=== PATIENT | male | born 1945 | race Caucasian/White ===

== ENCOUNTER 2018-07-18 13:34 | Emergency (ER) | payer MEDICARE, BC, SELFPAY ==
[2018-07-18] VITALS (15 sets, daily range): BP systolic 147–166; BP diastolic 85–90; PULSE 61–84; RESP 16–32; TEMP 37; O2SAT 95–99
[2018-07-18 13:59] LABS: Abs Immature Grans 0.01 k/cumm (0.0-0.09); Absolute Basophil Count 0.05 k/cumm (0.0-0.2); Absolute Eosinophil Count 0.67 k/cumm (0.0-0.7); Absolute Lymphocyte Count 1.55 k/cumm (1.2-3.4); Absolute Monocyte Count 0.61 k/cumm (0.11-0.7); Absolute Neutrophil Count 4.94 k/cumm (1.2-6.7); Basophils % 0.6; Eosinophils % 8.6; HCT 43.1 % (40.0-50.0); HGB 14.6 g/dL (13.5-17.5); Immature Grans % 0.1; Lymphocytes % 19.8; Mean Corp. HGB Concentration 33.9 g/dL (32.0-36.0); Mean Corpuscular Hemoglobin 30.5 pg (27.0-33.0); Mean Corpuscular Volume 90.2 fL (80-95); Mean Platelet Volume 9.2 fL (8.0-11.0); Monocytes % 7.8; Neutrophils % 63.1; Platelet Count 259 x1000/uL (130-400); RBC 4.78 m/cumm (4.50-6.00); RBC Distribution Width 12.7 % (11.8-14.1); White Blood Cell Count 7.83 k/cumm (4.4-10.8)
--- NOTE | 2018-07-18 14:04 | W.ED.GENAD ---
Discharge Plan Disposition Patient Disposition: HOME Condition: Stable Discharge Details Chief Complaint: Chest Pain Clinical Impression: Palpitations Primary Care Provider: Carolann Schulz ED Provider: Yifan Quiles Discharge Instructions Instructions: Palpitations (ED) Additional Instructions: Follow up with your primary care provider in 1-2 weeks and discuss having a stress test at that time for further evaluation of your symptoms return to the emergency department for worsening pain, difficulty breathing or vomit Medical Decision Making 73 yo male who denies chronic medical problems and denies any smoking history who comes in with chief complaint of palpitations intermittently for about 5 days. He states he feels his heart skipping beats for a few minutes with some aches and goes away on it's own. Denies radiation of pain, fevers, chills, sob, n/v, diaphoresis and has none now. Had some symptoms over 5 hours ago. Denies any abdominal pain or headaches. He is speaking in full sentences and laughing intermittently in no distress. He has no abdominal tenderness, clear lungs sounds and no murmurs with normal vascular exam. No tearing back pain and normal vascular exam so doubt dissection. No hypoxia or tachycardia so doubt pe and no evidence of dvt. His pain doesn't sound typical of acs, heart score is 2 based on age, ekg without ischemic findings, will send troponin, keep on tele and monitor electrolytes pt remains asymptomatic with normal tele here and is reading a book in no dsitress. Labs unremarkable. Do not feel additional troponin indicated given length of time with symptoms. Will d/c home with zio patch, advised f/u with pcp and return precautions given Differential Diagnosis afib, pvc's, acs Lab Data Lab results reviewed: Yes I reviewed the patient's lab results. ECG Data Attestation: I personally reviewed and interpreted this ECG (s) as follows: Prior ECG tracings: not available for review Interpretation: sinus rhythm, rate of 64, pr 184, no acute st t wave ischemic findings HPI General Mode of arrival: ambulatory. Date/Time Provider Initiated Documentation: 07/18/18 13:35. Limitations to Documentation: no limitations. Information obtained by: patient. History of Present Illness 73 year old M presents to the emergency department with the chief complaint of palpitations, described as mild, and is localized to the chest. Patient reports no radiation. Patient started experiencing this day(s) (5) and it has been intermittent. No relieving factors improve symptom(s), No exacerbating factors reported . Patient notes no other symptoms.. Patient did receive the following treatments prior to arrival, Aspirin (324mg asa earlier today per pt) General Stated Complaint: Chest Pain GISELLE: 2 Review of Systems Review of Systems All systems reviewed & are unremarkable except as noted in HPI and below Constitutional Denies chills and Denies fever(s) Cardiovascular Denies dyspnea Respiratory Denies cough and Denies dyspnea Gastrointestinal Denies abdominal pain, Denies nausea and Denies vomiting Musculoskeletal Denies joint swelling Integumentary/Breasts Denies rash [facility] Social History Do you feel safe at home: Yes Do you feel safe in your relationship?: Yes Exam Const General: no acute distress Orientation: alert HENMT Head: normal to inspection Ears: external ears normal General nose exam: external nose normal Mouth: moist mucous membranes Eyes General: appearance normal, both eyes and all related structures Neck Neck: normal visual inspection Resp Effort & Inspection: normal respiratory effort and able to speak in complete sentences Cardio Rate: regular rate Skin General skin exam: no rashes or lesions noted Neuro General: alert and oriented x3 Extrem General: normal to inspection Psych Mental Status: mental status grossly normal Course Vital Signs Temperature 37 C 07/18/18 13:40 Pulse 84 07/18/18 13:40 Respiratory Rate 16 07/18/18 13:40 Blood Pressure 162/89 H 07/18/18 13:40 Pulse Oximetry 97 07/18/18 13:40 Temperature 37 C 07/18/18 13:40 Pulse 84 07/18/18 13:40 Respiratory Rate 16 07/18/18 13:40 Respiratory Effort Non-Labored 07/18/18 13:43 Blood Pressure 162/89 H 07/18/18 13:40 Blood Pressure Position Sitting 07/18/18 13:40 Pulse Oximetry 97 07/18/18 13:40 Oxygen Delivery Method Room Air 07/18/18 13:40 Oxygen Flow Rate 0 07/18/18 13:40 Lab/Test Results Lab/Test Results: Laboratory Tests Range/Units 07/18/18 13:43 WBC (4.4-10.8) k/cumm 7.83 RBC (4.50-6.00) m/cumm 4.78 Hgb (13.5-17.5) g/dL 14.6 Hct (40.0-50.0) % 43.1 MCV (80-95) fL 90.2 MCH (27.0-33.0) pg 30.5 MCHC (32.0-36.0) g/dL 33.9 RDW (11.8-14.1) % 12.7 Plt Count (130-400) x1000/uL 259 MPV (8.0-11.0) fL 9.2 Immature Gran % 0.1 Neutrophils % 63.1 Lymphocytes % 19.8 Monocytes % 7.8 Eosinophils % 8.6 Basophils % 0.6 Absolute Neutrophils (1.2-6.7) k/cumm 4.94 Absolute Lymphocytes (1.2-3.4) k/cumm 1.55 Absolute Monocytes (0.11-0.7) k/cumm 0.61 Absolute Eosinophils (0.0-0.7) k/cumm 0.67 Absolute Basophils (0.0-0.2) k/cumm 0.05
--- NOTE | 2018-07-18 14:10 | ED.GENADUL_ITS ---
Discharge Plan Disposition Patient Disposition: HOME Condition: Stable Discharge Details Chief Complaint: Chest Pain Clinical Impression: Palpitations Primary Care Provider: Carolann Schulz ED Provider: Yifan Quiles Discharge Instructions Instructions: Palpitations (ED) Additional Instructions: Follow up with your primary care provider in 1-2 weeks and discuss having a stress test at that time for further evaluation of your symptoms return to the emergency department for worsening pain, difficulty breathing or vomit Medical Decision Making 73 yo male who denies chronic medical problems and denies any smoking history who comes in with chief complaint of palpitations intermittently for about 5 days. He states he feels his heart skipping beats for a few minutes with some aches and goes away on it's own. Denies radiation of pain, fevers, chills, sob, n/v, diaphoresis and has none now. Had some symptoms over 5 hours ago. Denies any abdominal pain or headaches. He is speaking in full sentences and la ughing intermittently in no distress. He has no abdominal tenderness, clear lungs sounds and no murmurs with normal vascular exam. No tearing back pain and normal vascular exam so doubt dissection. No hypoxia or tachycardia so doubt pe and no evidence of dvt. His pain doesn't sound typical of acs, heart score is 2 based on age, ekg without ischemic findings, will send troponin, keep on tele and monitor electrolytes pt remains asymptomatic with normal tele here and is reading a book in no dsitress. Labs unremarkable. Do not feel additional troponin indicated given length of time with symptoms. Will d/c home with zio patch, advised f/u with pcp and return precautions given Differential Diagnosis afib, pvc's, acs Lab Data Lab results reviewed: Yes I reviewed the patient's lab results. ECG Data Attestation: I personally reviewed and interpreted this ECG (s) as follows: Prior ECG tracings: not available for review Interpretation: sinus rhythm, rate of 64, pr 184, no acute st t wave ischemic findings HPI General Mode of arrival: ambulatory . Date/Time Provider Initiated Documentation: 07/18/18 13:35 . Limitations to Documentation: no limitations . Information obtained by: patient . History of Present Illness 73 year old M presents to the emergency department with the chief complaint of palpitations, described as mild, and is localized to the chest. Patient reports no radiation. Patient started experiencing this day(s) (5) and it has been intermittent. No relieving factors improve symptom(s), No exacerbating factors reported . Patient notes no other symptoms.. Patient did receive the following treatments prior to arrival, Aspirin (324mg asa earlier today per pt) General Stated Complaint: Chest Pain GISELLE: 2 Review of Systems Review of Systems All systems reviewed & are unremarkable except as noted in HPI and below Constitutional Denies chills and Denies fever(s) Cardiovascular Denies dyspnea Respiratory Denies cough and Denies dyspnea Gastrointestinal Denies abdominal pain, Denies nausea and Denies vomiting Musculoskeletal Denies joint swelling Integumentary/Breasts Denies rash [facility] Social History Do you feel safe at home: Yes Do you feel safe in your relationship?: Yes Exam Const General: no acute distress Orientation: alert HENMT Head: normal to inspection Ears: external ears normal General nose exam: external nose normal Mouth: moist mucous membranes Eyes General: appearance normal, both eyes and all related structures Neck Neck: normal visual inspection Resp Effort & Inspection: normal respiratory effort and able to speak in complete sentences Cardio Rate: regular rate Skin General skin exam: no rashes or lesions noted Neuro General: alert and oriented x3 Extrem General: normal to inspection Psych Mental Status: mental status grossly normal Course Vital Signs Temperature 37 C 07/18/18 13:40 Pulse 84 07/18/18 13:40 Respiratory Rate 16 07/18/18 13:40 Blood Pressure 162/89 H 07/18/18 13:40 Pulse Oximetry 97 07/18/18 13:40 Temperature 37 C 07/18/18 13:40 Pulse 84 07/18/18 13:40 Respiratory Rate 16 07/18/18 13:40 Respiratory Effort Non-Labored 07/18/18 13:43 Blood Pressure 162/89 H 07/18/18 13:40 Blood Pressure Position Sitting 07/18/18 13:40 Pulse Oximetry 97 07/18/18 13:40 Oxygen Delivery Method Room Air 07/18/18 13:40 Oxygen Flow Rate 0 07/18/18 13:40 Lab/Test Results Lab/Test Results: Laboratory Tests Range/Units 07/18/18 13:43 WBC (4.4-10.8) k/cumm 7.83 RBC (4.50-6.00) m/cumm 4.78 Hgb (13.5-17.5) g/dL 14.6 Hct (40.0-50.0) % 43.1 MCV (80-95) fL 90.2 MCH (27.0-33.0) pg 30.5 MCHC (32.0-36.0) g/dL 33.9 RDW (11.8-14.1) % 12.7 Plt Count (130-400) x1000/uL 259 MPV (8.0-11.0) fL 9.2 Immature Gran % 0.1 Neutrophils % 63.1 Lymphocytes % 19.8 Monocytes % 7.8 Eosinophils % 8.6 Basophils % 0.6 Absolute Neutrophils (1.2-6.7) k/cumm 4.94 Absolute Lymphocytes (1.2-3.4) k/cumm 1.55 Absolute Monocytes (0.11-0.7) k/cumm 0.61 Absolute Eosinophils (0.0-0.7) k/cumm 0.67 Absolute Basophils (0.0-0.2) k/cumm 0.05
[2018-07-18 14:17] LABS: PTT Activated 22.7 sec (21.0-31.4); Prothrombin Time 9.9 sec (9.3-11.0)
[2018-07-18 14:19] LABS: ALT 35 U/L (12-78); AST 27 U/L (15-37); Alkaline Phosphatase 68 U/L (46-116); Anion Gap 8.5 mmol/L (3-11); BUN 17 mg/dL (7-18); Bilirubin, Total 0.3 mg/dL (0.2-1.0); CO2 30.5 mmol/L (21.0-32.0); CREATININE 1.09 mg/dL (0.70-1.30); Calcium 9.1 mg/dL (8.5-10.1); Chloride 103 mmol/L (98-107); Glucose 131 mg/dL (70-100); Lipase 182 U/L (73-393); Potassium 3.6 mmol/L (3.5-5.1); Sodium 142 mmol/L (136-145); Total Protein 7.7 g/dL (6.4-8.2)
[2018-07-18 14:23] LABS: Troponin I < 0.02 ng/mL (0.00-0.06)
--- NOTE | 2018-08-08 10:23 | ZIOP_ITS ---
DATE OF DICTATION: August 08, [address]: 14 days, July 18 - August 01, 2018 Baseline rhythm sinus. Rare single PAC. Sixteen bursts of SVT, longest 8-beat duration, fastest 197 bpm. Rare single PVC. Rare couplet. No ventricular tachycardia. No bradycardia/block. Two triggered events during sinus rhythm +/- single PAC, single PVC, 65, 69 bpm. One symptomatic episode. Skipped, irregular beats noted during sinus rhythm 69 bpm. Average heart rate sinus 66 bpm, range 43-131 bpm.
== END 2018-07-18 15:19 | disposition home or self-care (01) ==
PROVIDERS: Emergency Provider Emergency Medicine; PCP Nurse Practitioner Family
DX: R00.2 Palpitations (principal)
CPT/HCPCS: 0296T; 36415; 80053; 80076; 83690; 99284; 83735; 84484; 85025; 85610; 85730

== ENCOUNTER 2018-08-08 08:38 | Outpatient (CLI) | payer MEDICARE, BC, SELFPAY | END 2018-08-08 08:58 | PROVIDERS: PCP Nurse Practitioner Family; Referring Provider Emergency Medicine; Visit Provider Internal Medicine Interventional Cardiology | DX: R00.2 Palpitations (principal); I47.1 Supraventricular tachycardia; I49.1 Atrial premature depolarization; I49.3 Ventricular premature depolarization | CPT/HCPCS: 0298T ==

== ENCOUNTER → 2019-01-27 10:19 | Outpatient (BNVA) | payer MEDICARE, BC, SELFPAY | PROVIDERS: PCP Nurse Practitioner Family; Referring Provider Nurse Practitioner Family; Visit Provider Physical Therapy Assistant | DX: Z12.11 Encounter for screening for malignant neoplasm of colon (principal); I10 Essential (primary) hypertension ==

== ENCOUNTER 2019-02-09 11:04 | Day surgery (SDC) | payer MEDICARE, BC, SELFPAY ==
[2019-02-09 11:26] VITALS: BP 137/95; PULSE 59; RESP 16; TEMP 36.4; O2SAT 99
[2019-02-09] MEDS: Lactated Ringers 1,000 ML 80 ML IV (11:39)
--- NOTE | 2019-02-09 14:09 | W.COLOREPORT ---
Date of service: 02/09/19 Time of Service: 14:09 Colonoscopy Report Date of procedure: 02/09/19 Pre-op diagnosis general: colon cancer screening Post-op diagnosis procedure note: other (divertic) Procedure: CE Anesthesia proc note operative: GETA Estimated blood loss (mL): 0 Pathology: none sent Complications: None Disposition: same day Retraction Time: 10 mins Procedure Description: After informed consent was obtained the patient was taken to the procedure room and placed in a left decubitous position. Monitors were applied and a time out was done. The patients name, date of , procedure, allergies to medications and metal in their body was reviewed. The patient was then sedated. Once sedated and comfortable a rectal exam was done. External exam is small external rectal tags.. Internal exam revealed a normal sphincter tone and no palpable masses. The prostate slt enlargment. The scope was then introduced and retrofelexed. No internal hemorrhoids were identified. The scope was then advanced to the cecum without difficulty. The TI and appendiceal orifice were identified. The prep was good. The scope was then slowly retracted over 10 minutes back into the rectum. There were no polyps or AVMs noted. He does have moderate diverticular disease confined to the sigmoid colon. There is no signs of active bleeding or infection. The scope was removed and the patient was woken up and taken back to Same day surgery in stable condition. The patient tolerated the procedure well and there were no immediate complications. Follow up: The patient does not require repeat colonoscopy, Unless they develop changes in bowel habits or other new gastrointestinal complaints. Patient has a small skin cancer on his right ear that should be removed. He can follow-up in the office to have this taken care of.
--- NOTE | 2019-02-09 14:13 | W.PM.DSUDISC ---
Discharge Plan Disposition Patient Disposition: HOME Condition: Good Discharge Details Reason For Visit: colon scope Attending Provider: Karina Lal Primary Care Provider: Cole Cagle Home Meds and New Rx's Prescriptions: Continued hydrochlorothiazide 12.5 mg tablet 12.5 mg PO DAILY RF: 0 Discontinued polyethylene glycol 3350 17 gram/dose powder 238 g PO ONCE Qty: 238 RF: 0 bisacodyl [Dulcolax (bisacodyl)] 5 mg tablet,delayed release (DR/EC) 5 mg PO ONCE Qty: 4 RF: 0 Discharge Instructions Instructions: Diverticulosis (DC), High Fiber Diet (GEN) Additional Instructions: Findings: moderate divertiuclar Dx high fiber diet- 30grams daily. consider fiber suppliment. Make sure you are moving your bowels on a regular basis and not straining. Follow up: F/u in clinic w/ Dr. Lal to have lesion removed on ear Please call if you develop: fevers >101.5 Nausea or Vomiting Abdominal pain that is not transient DAY SURGERY UNIT POST COLONOSCOPY INSTRUCTIONS 1. Because there will be medication in your system for the next 24 hours, you may feel a little sleepy. Your coordination will be affected. Therefore: a. Do not drive or operate dangerous equipment for 24 hours. b. Do not drink alcohol beverages for 24 hours (not even beer). c. Plan to go home and rest for the day. 2. Generally there are no restrictions on your activity after a day or so has gone by, but you may feel a bit fatigued for a few days. 3 After you arrive home you may have a light meal and return to a normal diet as you can tolerate it without feeling sick to your stomach. 4. After surgery, you may feel pain or discomfort. This should be only transient, but if it persists please contact your doctor. 5. If there are any questions regarding the findings of your procedure, please feel free to contact your doctor. 6. If you are unable to contact your doctor with a problem, contact the hospital at [phone]. 7. Continue all your regular medications unless directed otherwise. I understand the above instructions and have no questions. Signature of Patient or Responsible Adult Escort Date/Time Name of Responsible Adult Escort Signature of Nurse Date/Time Activity:: no heavy lifting or strenuous acitivity x 24 hrs Diet:: small light meals for 24 hours Discharge Orders Discharge Orders: Discharge Order (Routine); Ordered 02/09/19 Ordered By: Karina Lal DS: Diagnosis Discharge Diagnosis (1) Diverticulosis: Status: Acute (2) Cancer of skin of right ear: Status: Acute
[2019-02-09 14:32] VITALS: BP 122/78; PULSE 55; RESP 16; TEMP 36.5; O2SAT 97
== END 2019-02-09 15:00 | disposition home or self-care (01) ==
PROVIDERS: PCP Nurse Practitioner Family; Visit Provider Surgery
PROC: 0DJD8ZZ Inspection of Lower Intestinal Tract, Via Natural or Artificial Opening Endoscopic (ICD-10-PCS; CPT 45378; principal; 2019-02-09 11:45)
DX: Z12.11 Encounter for screening for malignant neoplasm of colon (principal); K57.30 Diverticulosis of large intestine without perforation or abscess without bleeding; I10 Essential (primary) hypertension
CPT/HCPCS: G0121; J2250; J3010

== ENCOUNTER → 2019-02-22 09:52 | Outpatient (BNVA) | payer MEDICARE, BC, SELFPAY | PROVIDERS: PCP Nurse Practitioner Family; Referring Provider Nurse Practitioner Family; Visit Provider Surgery | DX: L82.1 Other seborrheic keratosis (principal) | CPT/HCPCS: 11441; 99212 ==

== ENCOUNTER 2019-02-22 10:57 | Outpatient (REF) | payer MEDICARE, BC, SELFPAY ==
--- NOTE | 2019-02-22 10:02 | SKI_PTH ---
PATIENT: Ry Khan LOC: [facility] U#:[id number] AGE/SX: 73/M ROOM: RE02/22/[address]: Karina Lal : 1945 BED: DIS: 02/22/2019 SPEC #: [id number] RECD: 02/22/19 12:48 STATUS: ANCA REQ #: [id number] KE: 02/22/19 10:[address]: Karina Lal DEPT: Surgical Specimen RECD BY: Sofia Ayala ENTERED: 02/22/19 12:48 SP TYPE: BLAIR LEDBETTER DR: Cole Cagle Tissues: 1 - SKIN BIOPSY(SHAVE/PUNCH) Procedures: SKIN LEVEL 4 Comments: [id number]
== END 2019-02-22 11:17 ==
LOC: LBN 10:57
PROVIDERS: PCP Nurse Practitioner Family; Visit Provider Surgery
DX: L82.1 Other seborrheic keratosis (principal)
CPT/HCPCS: 88305

== ENCOUNTER → 2019-03-08 15:46 | Outpatient (BNVA) | payer MEDICARE, BC, SELFPAY | PROVIDERS: PCP Nurse Practitioner Family; Referring Provider Nurse Practitioner Family; Visit Provider Surgery | DX: L82.0 Inflamed seborrheic keratosis (principal); Z48.89 Encounter for other specified surgical aftercare ==

== ENCOUNTER 2019-05-22 08:59 | Outpatient (REF) | payer MEDICARE, BC, SELFPAY ==
[2019-05-22 14:19] LABS: PROTEIN 6.6 mg/dL
[2019-05-22 14:21] LABS: COMMENT (LAB VIEW ONLY) 93.54 mg/dL; Prot/Crea Ur Ratio 0.07
[2019-05-22 14:22] LABS: COMMENT (LAB VIEW ONLY) 93.03 mg/dL; Microalb ug/mg Crea 5.7 ug/mg Cr
== END 2019-05-22 09:19 ==
LOC: NCHCN 08:59
PROVIDERS: PCP Nurse Practitioner Family; Visit Provider Nurse Practitioner Family
DX: I10 Essential (primary) hypertension (principal)
CPT/HCPCS: 82043; 82565; 82570; 84156

== ENCOUNTER 2019-07-03 13:25 | Outpatient (REF) | payer MEDICARE, BC, SELFPAY ==
[2019-07-03 14:05] LABS: Anion Gap 10.8 mmol/L (3-11); BUN 18 mg/dL (7-18); CO2 27.2 mmol/L (21.0-32.0); CREATININE 1.09 mg/dL (0.70-1.30); Calcium 8.8 mg/dL (8.5-10.1); Chloride 105 mmol/L (98-107); Glucose 89 mg/dL (74-106); Potassium 3.9 mmol/L (3.5-5.1); Sodium 143 mmol/L (136-145)
== END 2019-07-03 13:45 ==
LOC: NCHCN 13:25
PROVIDERS: PCP Nurse Practitioner Family; Visit Provider Nurse Practitioner Family
DX: I10 Essential (primary) hypertension (principal)
CPT/HCPCS: 80048

== ENCOUNTER 2019-09-12 12:09 | Emergency (ER) | payer MEDICARE, BC, SELFPAY ==
[2019-09-12 12:13] VITALS: BP 117/96; PULSE 80; RESP 16; TEMP 36.7; O2SAT 97
--- NOTE | 2019-09-12 12:40 | W.ED.GENAD ---
Discharge Plan Disposition Patient Disposition: HOME Condition: Stable Discharge Details Chief Complaint: Orthopedic Clinical Impression: Hematoma of right lower extremity Primary Care Provider: Cole Cagle ED Provider: Kana Goddard Home Meds and New Rx's Prescriptions: Continued hydrochlorothiazide 12.5 mg tablet 25 mg PO DAILY RF: 0 Discharge Instructions Instructions: Hematoma (ED) Additional Instructions: Please contact your primary care physician to arrange follow-up as needed. Return to the ER for any worsening or new concerning symptoms. Referrals: Cole Cagle [employer]ANDSC[employer] ARCHITECTURE PROFESSOR [Primary Care Provider] - Medical Decision Making 74-year-old male here with hematoma right medial knee. No bony tenderness and no knee effusion. Neurovascular intact distally. Will provide Reese wrap provided. Usual and customary discharge instructions were reviewed with the patient. HPI General Mode of arrival: ambulatory. Date/Time Provider Initiated Documentation: 09/12/19 12:39. Limitations to Documentation: no limitations. Information obtained by: patient. HPI Narrative: 74-year-old presents with chief complaint of right knee swelling. Patient notes he was working with a chainsaw and a piece of wood flew off the chain and impacted his right medial knee. This occurred around 1030 this morning. He notes he did not experience any significant pain or laceration. He continued working there was only later after getting changed that he noticed significant swelling medial knee. Patient notes he does have some mild discomfort when he bends his knee fully but otherwise does not have pain. No associated numbness or weakness. Patient denies blood thinners. Related Data Home Medications Medication Instructions Recorded Confirmed hydrochlorothiazide 12.5 mg tablet 25 mg PO DAILY 12/05/18 09/12/19 Allergies Allergy/AdvReac Type Severity Reaction Status Date / Time No Known Allergies Allergy Verified 02/22/19 09:55 General Stated Complaint: Orthopedic GISELLE: 4 Review of Systems Musculoskeletal Musculoskeletal: Reports as per HPI Hematologic/Lymphatic Hematologic/Lymphatic: Denies easy bruising [facility] Medical History 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) Diverticulosis (Acute) Hypertension (Chronic) Onychomycosis (Acute) Seborrheic keratoses, inflamed (Acute) Surgical History History of colonoscopy (Chronic) Social History Smoking/Tobacco Use Status: Never Alcohol Intake: current Alcohol Intake frequency: 0-2 drinks per day Alcohol type: wine Drug use: Never Substance use type: does not use Current gender identity: male Do you feel safe at home: Yes Do you feel safe in your relationship?: Yes Exam Const General: cooperative and no acute distress HENMT Mouth: moist mucous membranes Eyes Sclera: normal sclerae Cardio Rate: regular rate Rhythm: regular rhythm Skin General skin exam: no rashes or lesions noted Extrem Right lower extremity: knee (Hematoma medial distal femur) Details: normal ROM and other (No effusion) Course Vital Signs Vital signs: Vital Signs Temperature 36.7 C 09/12/19 12:13 Pulse 80 09/12/19 12:13 Respiratory Rate 16 09/12/19 12:13 Blood Pressure 117/96 H 09/12/19 12:13 Pulse Oximetry 97 09/12/19 12:13 Temperature 36.7 C 09/12/19 12:13 Temperature Source Tympanic 09/12/19 12:13 Pulse 80 09/12/19 12:13 Respiratory Rate 16 09/12/19 12:13 Respiratory Effort 09/12/19 12:16 Blood Pressure 117/96 H 09/12/19 12:13 Blood Pressure Position Sitting 09/12/19 12:13 Pulse Oximetry 97 09/12/19 12:13 Oxygen Delivery Method Room Air 09/12/19 12:13 Oxygen Flow Rate 0 09/12/19 12:13 Pain Level 1 09/12/19 12:13
== END 2019-09-12 12:46 | disposition home or self-care (01) ==
LOC: ER 12:50
PROVIDERS: Emergency Provider Student in an Organized Health Care Education/Training Program; PCP Nurse Practitioner Family
DX: S80.01XA Contusion of right knee, initial encounter (principal); W20.8XXA Other cause of strike by thrown, projected or falling object, initial encounter; I10 Essential (primary) hypertension
CPT/HCPCS: 99282; 99283

== ENCOUNTER 2020-05-30 15:14 | Outpatient (REF) | payer MEDICARE, BC, SELFPAY ==
[2020-05-30 15:00] LABS: ALT 43 U/L (16-63); AST 30 U/L (15-37); Albumin 4.1 g/dL (3.4-5.0); Alkaline Phosphatase 62 U/L (46-116); Anion Gap 12.4 mmol/L (3-11); BUN 23 mg/dL (7-18); Bilirubin, Total 0.4 mg/dL (0.2-1.0); CO2 25.6 mmol/L (21.0-32.0); Calcium 9.4 mg/dL (8.5-10.1); Calculated LDL 110 mg/dL (<100); Chloride 104 mmol/L (98-107); Cholesterol 193 mg/dL (<200); Glucose 81 mg/dL (74-106); HDL Cholesterol 43 mg/dL (40-60); Potassium 3.9 mmol/L (3.5-5.1); Sodium 142 mmol/L (136-145); Total Protein 7.6 g/dL (6.4-8.2); Triglyceride 201 mg/dL (<150)
[2020-05-31 10:36] LABS: HIV-1/2 Ag & Ab Screen Negative (Negative)
[2020-05-31 10:43] LABS: Hepatitis C Ab w Rflx HCV PCR Negative (Negative)
== END 2020-05-30 15:15 | disposition home or self-care (01) ==
LOC: NCHCN 15:14
PROVIDERS: PCP Nurse Practitioner Family; Visit Provider Physician Assistant Surgical
DX: I10 Essential (primary) hypertension (principal); Z13.220 Encounter for screening for lipoid disorders; Z00.00 Encounter for general adult medical examination without abnormal findings
CPT/HCPCS: 80053; 80061; 86803; 87389

== ENCOUNTER 2021-01-01 02:44 | Outpatient (CLI) | payer MEDICARE, BC, SELFPAY ==
[2021-01-01] MEDS: Omnipaque 350 MG/ML 100 ML BTL IJ (13:28)
[2021-01-01] MEDS: Normal Saline Flush 10 ML SYR IVP (13:29)
--- NOTE | 2021-01-01 13:29 | DI.CT_ITS ---
Exam(s) CT NECK W EXAM: CT NECK W CLINICAL HISTORY: RT CERVICAL LYMPHADENOPATHY,R59.0. TECHNIQUE: Imaging Protocol: Axial CT angiography was performed with multi-slice acquisition and mu lti-planar and/or 3D reconstructions. CONTRAST MATERIAL: Intravenous: Omnipaque 350 Contrast volume:structured data in ml COMPARISON: No exams were available for comparison . Apparently patient has lump on the right side of. Patient claims this has somewhat decreased in size recently. FINDINGS: Region of clinical concern: On the right side of the neck there is a skin marker. Immediately subjac ent to the skin marker is a small benign-appearing subpatellar small lymph node. Deep to this is a n ormal appearing right submandibular gland. No other findings in this region. Nasopharynx: No mass. Oropharynx: Uvula is midline. No obvious asymmetric mass. Hypopharynx: Epiglottis and valleculae appear unremarkable. No obvious masses. Aryepiglottic folds appear unremarkable. Vocal cords: No obvious mass. Subglottic airway also unremarkable. Thyroid gland: Normal size. No nodules evident. Salivary glands: Submandibular glands appear unremarkable. Parotid glands appear unremarkable. No m asses nor calculi evident. Lymph nodes: No obvious pathologic appearing lymphadenopathy in the neck. No adenopathy in the supra clavicular regions. Vascular: There is calcified and noncalcified plaque at the left carotid bifurcation proximal interna l carotid artery but with moderate stenosis at this level. Doppler imaging recommended. Lesser amou nt of plaque seen on the opposite-right side. Internal jugular veins are patent. IMPRESSION: 1. No evidence of significant mass or lymphadenopathy. Subjacent to the right-sided skin marker ther e is a small sub platysmal benign-appearing lymph node and no other significant findings. 2. No significant lymphadenopathy in the neck 3. Atherosclerotic involvement of the carotid bifurcations as described above. Follow-up Doppler im aging recommended. RADIATION DOSE DELIVERED: 444.08mGy.cm Total DLP DATA REPOSITORY: All CT scans at this facility are submitted to the National Radiology Data Registry (NRDR) Dose Index Registry (DIR) with the [employer] ([employer]). RADIATION OPTIMIZATION: All CT scans at this facility use at least one of these dose optimization te chniques: automated exposure control; mA and/or kV adjustment per patient size (includes targeted exa ms where dose is matched to clinical indication); or iterative reconstruction.
== END 2021-01-01 03:04 ==
PROVIDERS: PCP Nurse Practitioner Family; Visit Provider Physician Assistant
DX: R59.0 Localized enlarged lymph nodes (principal); I65.23 Occlusion and stenosis of bilateral carotid arteries; Z01.812 Encounter for preprocedural laboratory examination
CPT/HCPCS: 70491; 82565; J3490

== ENCOUNTER 2021-07-04 03:02 | Outpatient (CLI) | payer MEDICARE, BC, SELFPAY ==
--- NOTE | 2021-07-04 | DI.US_ITS ---
Exam(s) US CAROTID EXAM: US CAROTID CLINICAL HISTORY: CORONARY ARTERY STENOSIS I65.29. TECHNIQUE: Ultrasound carotids performed using grayscale, color-flow, and spectral Doppler imaging. COMPARISON: No exams were available for comparison FINDINGS: Grayscale, color, and Doppler imaging of the carotid arteries on both sides the neck was performed. CT scan 01/01/2021 was reviewed. There is plaque noted bilaterally at the level the carotid bulbs and proximal internal carotid arteri es. This appears slightly more prominent on the left side. However, there do not appear to be signi ficantly elevated velocities to indicate stenosis greater than 50 percent. Antegrade flow was demonstrated in both vertebral arteries. Measurements: R Bulb: 82.4cm/s PS / 25.9cm/s ED R CCA: 120.3cm/s PS / 31.5cm/s ED R ECA: 88.9cm/s PS / 17.4cm/s ED R ICA Prox: 71.5cm/s PS /23.4cm/s ED R ICA Mid: 79.2cm/s PS / 30.8cm/s ED R ICA Distal: 88.8cm/s PS /31.5cm/s ED R Vert: 48.4cm/s PS / 18.4cm/s ED R SVR: 0.74 R DVR: 1 L Bulb: 79.9cm/s PS /12.6cm/s ED L CCA: 110.1cm/s PS / 33.3cm/s ED L ECA: 75cm/s PS /17.6cm/s ED L ICA Prox:63.6cm/s PS / 21.7cm/s ED L ICA Mid: 57.3cm/sPS / 22.9cm/s ED L ICA Distal: 85.6cm/s PS / 33.35cm/s ED L Vert: 57.8cm/s PS / 19.3cm/s ED L SVR: 0.82 L DVR: 0.95 IMPRESSION: Moderate amount of calcified and noncalcified plaque at the carotid bifurcations and proximal interna l carotid arteries on both sides. The velocities indicate that the amount of stenosis is less than 5 0 percent bilaterally. Antegrade flow is demonstrated in both vertebral arteries. Criteria for Carotid Stenosis: Normal: ICA PSV <125 cm/s no plaque or intimal thickening is visible. <50% stenosis: ICA PSV <125 cm/s and plaque or intimal thickening is visible. 50-69% stenosis: ICA PSV is 125-250 cm/s and plaque is visible. >70% stenosis to near occlusion: ICA PSV >250 cm/s with visible plaque and luminal narrowing. DATA REPOSITORY:
== END 2021-07-04 03:22 ==
PROVIDERS: PCP Nurse Practitioner Family; Visit Provider Physician Assistant
DX: I65.23 Occlusion and stenosis of bilateral carotid arteries (principal)
CPT/HCPCS: 93880

== ENCOUNTER 2021-11-03 11:40 | Observation (INO) | payer MEDICARE, BC, SELFPAY ==
[2021-11-03] VITALS (36 sets, daily range): BP systolic 129–159; BP diastolic 69–101; PULSE 47–68; RESP 10–28; TEMP 36.3–37; O2SAT 96–99
--- NOTE | 2021-11-03 11:45 | RT.EKG_ITS ---
APPROVED REPORT Exam: Resting ECG Reason for Exam: chest pain Patient Location: E HR:57 bpm ECG Measurements Heart Rate 57 AXIS MA 221 P 53 QRSd 98 QRS 7 QT 410 T 49 QTc 401 Conclusion Sinus bradycardia...rate< 60 Prolonged MA interval...MA >220, V-rate 50- 90 no STEMI, non-diagnostic EKG I have reviewed and interpreted ECG and agree with software generated interpretation.
--- NOTE | 2021-11-03 12:00 | DI.RAD_ITS ---
Exam(s) XR CHEST 2V PA LATERAL EXAM: XR CHEST 2V PA LATERAL CLINICAL HISTORY: palpitations. TECHNIQUE: 2D digital imaging was performed. COMPARISON: No exams were available for comparison FINDINGS: 2 views: Heart size is normal. The mediastinum is not widened. Lungs are clear. No infiltrates nor pleural effusions. IMPRESSION: No acute pulmonary findings. DATA REPOSITORY: RADIATION DOSE DELIVERED:
--- NOTE | 2021-11-03 12:01 | ED.GENADUL_ITS ---
Discharge Plan Disposition Patient Disposition: [facility] INPATIENT Condition: Stable Discharge Details Clinical Impression: Unstable angina Admit Date/Time: 11/03/21 14:29 Admit Provider: Ry Valderrama Attending Provider: Ry Valderrama Primary Care Provider: Raymond Olivares ED Provider: Sarai Covington Discharge Data Discharge Date/Time-TO BE ENTERED AT DEPARTURE: 11/03/21 15:56 Medical Decision Making Patient is a pleasant 76-year-old gentleman presenting to chief complaint of palpitations. He reports he has had intermittent palpitations, particularly when leaning forward and with exertion, for the past 6 weeks. He states that he can be anywhere between 2 beats to 30 seconds. States that this has cut back the distance he has been walking. States that typically he walks about 4 miles but is only been doing to as a result of these palpitations. States that for the first several weeks he was not having any chest pain but over the past 2 days has began developing some chest discomfort. 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 He denies feeling lightheaded, nauseous or having radiation of discomfort associated with this. He denies any personal or familial history of heart disease. Patient does have a history of hypertension. No recent travel. Has had several tick bites. On exam, patient appears nontoxic. He is hemodynamically stable. Lungs are clear. Normal cardiac exam. He has no lower extremity edema, calves are soft and nontender. Patient is not actively having any symtoms Primarily concerned for possible unstable angina with advancing symptoms. ECG without acute ischemic changes. Also consider potential electrolyte abnormality, musculoskeletal source, NSTEMI, thyroid disorder versus other causing his palpitations and advancing chest pain. Will obtain chest x-ray, baseline labs. Will give aspirin. FINDINGS: 2 views: Heart size is normal.? The mediastinum is not widened. Lungs are clear.? No infiltrates nor pleural effusions IMPRESSION: No acute pulmonary findings Labs reviewed. No leukocytosis. Stable H&H. Troponin within normal limits. No significant abnormality on CMP. TSH within normal limits. Patient does in a long time outdoors and has had multiple tick bites, also consider that this could be underlying source of his palpitations and has sent tick and Lyme panel. Patient's heart score is moderate. This, coupled with the patient's advancing symptoms does have me concerned for unstable angina. I feel that observation and would be most appropriate with plan to continue to trend his troponins, monitor for symptoms as well as obtain stress test. Consulted with Dr. Sosa regarding my concerns and he agrees to admission. Patient transferred upstairs to medical surgical floor in stable condition. Patient agreement with this plan. HPI General Date/Time Provider Initiated Documentation: 11/03/21 12:01 . Limitations to Documentation: no limitations . Information obtained by: patient and RN notes reviewed . History of Present Illness 76 year old M presents to the emergency department with the chief complaint of palpitations, described as moderate, Quality is described as other (palpitations), and is localized to the chest. Patient reports no radiation. Patient started experiencing this week(s) and it has been intermittent. Immobilization improves symptom(s), Movement worsens symptoms (with exertion) . Patient notes shortness of breath (decreased exertional capabilitites); denies chest pain, fever/chills, headaches, loss of appetite, nausea/vomiting and syncope. Patient did receive the following treatments prior to arrival, none Related Data Home Medications Medication Instructions Recorded Confirmed hydrochlorothiazide 12.5 mg tablet 25 mg PO DAILY 12/05/18 09/12/19 lisinopril 10 1 tab PO DAILY 11/03/21 11/03/21 mg-hydrochlorothiazide 12.5 mg tablet aspirin 81 mg chewable tablet 81 mg PO DAILY #0 tabs 11/04/21 (Children's Aspirin) Previous Rx's Medication Instructions Recorded aspirin 81 mg chewable tablet 81 mg PO DAILY #0 tabs 11/04/21 (Children's Aspirin) Allergies Allergy/AdvReac Type Severity Reaction Status Date / Time No Known Allergies Allergy Verified 11/03/21 11:49 General Stated Complaint: Palpitatns GISELLE: 3 Review of Systems Constitutional Constitutional: Reports as per HPI, Denies chills, Denies fever(s), Denies headache(s) and Denies poor appetite ENT Ears, Nose, Mouth, and Throat: Denies headache(s) Cardiovascular Cardiovascular: Reports as per HPI Respiratory Respiratory: Reports as per HPI, Denies chest congestion, Denies cough, Denies pain on inspiration and Denies pain with cough Gastrointestinal Gastrointestinal: Reports as per HPI, Denies abdominal pain, Denies diarrhea, Denies nausea and Denies vomiting Genitourinary Genitourinary: Denies system reviewed and no additional complaints, except as documented (denies change in urinary habits) Musculoskeletal Musculoskeletal: Reports as per HPI and Denies back pain Integumentary/Breasts Skin/Breast: Reports as per HPI and Denies rash Neurologic Neurologic: Reports as per HPI and Denies headache(s) PFSH All Active Problems (Updated 11/05/21 @ 00:08 by ELIANA KRUEGER) Palpitations (Acute) Seborrheic keratoses, inflamed (Acute) 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 Exam Const General: cooperative, healthy appearing, comfortable, no acute distress and well developed Nutritional Appearance: average body habitus and well nourished Orientation: alert, awake and oriented x3 HENMT Head: normal to inspection Ears: hearing grossly normal bilaterally Mouth: moist mucous membranes Chest Chest: normal inspection of the chest, normal palpation of entire chest wall and no crepitus Resp Effort & Inspection: normal respiratory effort, able to speak in complete sentences and no respiratory distress Auscultation: clear to auscultation bilaterally, no rales, no rhonchi and no wheezes Cardio Rate: regular rate Rhythm: regular rhythm Heart Sounds: S1 normal and S2 normal GI Inspection: normal to inspection, no edema and non-distended Palpation: soft, no hepatosplenomegaly, not firm, no guarding, not rigid and no ntender Auscultation: normal bowel sounds Back/Spine/Pelvis Back: no CVA tenderness Thoracic/Lumbar Spine: thoracic and lumbar spine normal to inspection Skin General skin exam: no rashes or lesions noted Trauma: no lacerations or abrasions Neuro General: patient alert, patient awake and patient oriented x3 Cognition: normal cognition Speech: speech normal Gait: normal gait Extrem General: normal to inspection, capillary refill normal, no pedal edema, no calf tenderness and normal gait Psych Appearance: grossly normal and well kempt Mental Status: mental status grossly normal Speech and Movement: speech and movement normal Course Vital Signs Vital signs: Vital Signs Temperature 37 C 11/03/21 11:46 Pulse 55 L 11/03/21 11:46 Respiratory Rate 18 11/03/21 11:46 Blood Pressure 129/69 11/03/21 11:46 Pulse Oximetry 98 11/03/21 11:46 Temperature 37 C 11/03/21 11:46 Temperature Source Temporal Artery Scan 11/03/21 11:46 Pulse 55 L 11/03/21 11:46 Respiratory Rate 18 11/03/21 11:46 Respiratory Effort Non-Labored 11/03/21 11:50 Blood Pressure 129/69 11/03/21 11:46 Blood Pressure Position Sitting 11/03/21 11:46 Pulse Oximetry 98 11/03/21 11:46 Oxygen Delivery Method Room Air 11/03/21 11:46 Oxygen Flow Rate 0 11/03/21 11:46
[2021-11-03 12:18] LABS: Abs Immature Grans 0.03 10^3/uL (0.0-0.06); Absolute Basophil Count 0.07 10^3/uL (0.0-0.2); Absolute Eosinophil Count 0.43 10^3/uL (0.0-0.7); Absolute Lymphocyte Count 1.18 10^3/uL (1.2-3.4); Absolute Monocyte Count 0.56 10^3/uL (0.1-0.8); Absolute Neutrophil Count 5.21 10^3/uL (1.2-6.7); Basophils % 0.9; Eosinophils % 5.7; HCT 41.4 % (40.0-50.0); HGB 13.8 g/dL (13.5-17.5); Immature Grans % 0.4; Lymphocytes % 15.8; MCH 30.3 pg (27.0-33.0); MCHC 33.3 % (32.0-36.0); MCV 91 fL (80-95); MPV 9.4 fL (8.0-11.0); Monocytes % 7.5; Neutrophils % 69.7; Platelet Count 245 10^3/uL (130-400); RBC 4.56 10^6/uL (4.36-5.78); RDW-SD 40.1 fL; WBC 7.48 10^3/uL (4.4-10.8)
[2021-11-03 12:37] LABS: ALT 29 U/L (16-63); AST 24 U/L (15-37); Albumin 3.9 g/dL (3.4-5.0); Alkaline Phosphatase 57 U/L (46-116); BUN 24 mg/dL (7-18); Bilirubin, Total 0.4 mg/dL (0.2-1.0); CREATININE 1.1 mg/dL (0.70-1.30); Chloride 104 mmol/L (98-107); Glucose 142 mg/dL (74-106); Potassium 3.8 mmol/L (3.5-5.1); Sodium 141 mmol/L (136-145); Total Protein 7.4 g/dL (6.4-8.2)
[2021-11-03 12:43] LABS: Magnesium 1.9 mg/dL (1.8-2.4); TSH (W/Ref FT4) 2.42 uIU/mL (0.36-3.74); Troponin I < 50 ng/L (<or=60)
[2021-11-03 15:13] LABS: COVID-19 PCR Negative (Negative); Influenza A PCR Negative (Negative); Influenza B PCR Negative (Negative); RSV PCR Negative (Negative)
[2021-11-03] MEDS: Aspirin 81 MG CHEW 324 MG CH (15:46)
--- OUTSIDE RECORDS SUMMARY | 2021-11-03 15:57 | XMS_ITS | Encounter Summary ---
:1945 Author Organization [facility] Address [address] [place] [address] Care Team Providers Name Role Phone Unknown, Provider Primary Care Provider Encounter Details Date Type Department Care Team Description 02/22/2019 Results Only [facility]- Gilmer Pelayo, DO [phone] [address] [place] [address] Social History Tobacco Use Types Packs/Day Years Used Date Never Assessed Sex Assigned at Date Recorded Not on file documented as of this encounter Plan of Treatment Not on filedocumented as of this encounter Procedures Procedure Name Priority Date/Time Associated Diagnosis Comme [facility] SURGICAL PATHOLOGY Routine 02/22/2019 15:15 Resul ts for this EDT procedure are i n the results section. documented in this encounter Results SURGICAL PATHOLOGY (02/22/2019 15:15 EDT) Pathology Report: SURGICAL PATHOLOGY REPORT [facility] Reports generated via electronic interface contain ho ginal data; LABORATORY however they are lacking the format of the original re port. SERVICES Caution should be taken when reading/interpreting unfo rmatted reports. Name: ? RY GALAVIZ ? Accession #: ? [id number] ? : ? 1945 (Age: [age]) ??M ? Collect Date: ? 02/22/2019 ? Location: ? [facility] ? Receive Date: ? 019 ? Provider: GILMER SUÁREZ DO Copy to: HEAVEN CUNHA DNP ? Final Pathologic Diagnosis: SKIN OF EAR, RIGHT PINNA, SHAVE BIOPSY: - Seborrheic keratosis. Microscopic Description: The stratum corneum is thick ened by compact and basketweave orthokeratosis with formation of horn pseudocysts. ??The epi dermis is acanthotic with formation of broad and anastomosing trabeculae. ??The trabeculae ar e composed of basaloid keratinocytes with round uniform nuclei. ??The keratin ocytes have a variable amount of melanin pigment. ??(Dr. Lundberg)/jds Document reviewed and electronically signed by: DAVID LUNDBERG MD Report ??Date: 02/23/2019 14:31 By the signature above, the attending physician certif ies that he/she has personally conducted a gross and/or microscopic examin ation of the described specimens and rendered or confirmed the above diagnosi s. Specimen(s) Received: Right ear pinna skin lesion Clinical History: Possible skin cancer; fax results to [phone] Gross Description: ? Received in formalin labelled with proper patient identification (initials S, S) and right ear pinna excision is a shave biopsy of a canchola-brown roughened, granular papule ( 0.9 x 0.6 x 0.3 cm). The specimen is inked, bisected and submitted in 1. TERESA Mckenna (ASCP) 02/22/2019 3:26 PM End of Report Specimen Performing Organization Address City/State/ZIP Code Phon e Number [facility] [address] [place] [address] SERVICES documented in this encounter Visit Diagnoses Not on filedocumented in this encounter Care Teams Cytotechnologist/Histotechnologist Relationship Specialty Start Date End Date Unknown, Provider, PCP - General 02/22/19 02/22/19 documented as of this encounter
--- OUTSIDE RECORDS SUMMARY | 2021-11-03 15:57 | XMS_ITS | Encounter Summary ---
:1945 Author Organization [facility] Address [address] [place] [address] Care Team Providers Name Role Phone Unknown, Provider Primary Care Provider Encounter Details Date Type Department Care Team Description 02/22/2019 Hospital Encounter [facility]- Ami Unknown, Provider, [facility] [address] [place] [address] [place] [address] (Work) [phone] Social History Tobacco Use Types Packs/Day Years Used Date Never Assessed Sex Assigned at Date Recorded Not on file documented as of this encounter Discharge Disposition Disposition Code Departure Means Destination Home or Self Shelter documented in this encounter Plan of Treatment Not on filedocumented as of this encounter Visit Diagnoses Not on filedocumented in this encounter Care Teams 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
--- OUTSIDE RECORDS SUMMARY | 2021-11-03 15:57 | XMS_ITS | Encounter Summary ---
:[address] [facility] Address [address] [place] [address] Care Team Providers Name Role Phone Cole Cagle DNP Primary Care Provider Encounter Details Date Type Department Care Team Description 05/30/2020 Lab Requisition [facility] Outr Resulting Lab, Pathology & Laboratory Provider [facility] [address], [place] [id number] Social History Tobacco Use Types Packs/Day Years Used Date Never Assessed Sex Assigned at Date Recorded Not on file documented as of this encounter Plan of Treatment Not on filedocumented as of this encounter Procedures Procedure Name Priority Date/Time Associated Diagnosis Comme nts HEPATITIS C AB W Routine 05/30/2020 11:30 Results for this REFLEX TO HCV RNA EST procedure are in BY PCR the results section. documented in this encounter Results HEPATITIS C AB W REFLEX TO HCV RNA BY PCR (05/30/2020 11:30 EST) Pathologist Sig nature Hep C Antibody Negative Negative [facility] Specimen Blood - Venous blood (substance) Performing Organization Address City/State/ZIP Code Phon e Number [facility] [address] [place] [address] SERVICES documented in this encounter Visit Diagnoses Not on filedocumented in this encounter Care Teams Locket Maker Relationship Specialty Start Date End Date Cole Cagle, NOLAN PCP - General 02/23/19 Roselyn [address] [place] [id number] documented as of this encounter
[2021-11-03 15:59] LABS: Troponin I < 50 ng/L (<or=60)
--- NOTE | 2021-11-03 18:26 | W.PM.HP.N ---
Date of service: 11/03/21 Time of Service: 18:26 Assessment and Plan Assessment and plan (1) Hypertension: Status: Chronic Assessment and plan: Not diagnosed prior to this admission but SBP readings in the 150's. Monitor. Likely defer to PCP for further monitoring and intervention. (2) Chest pain: Status: Acute Assessment and plan: R/O cardiac with stress test. Troponin neg x2. No EKG findings. He received aspirin 324mg in the ED. Cont with aspirin 81mg in the AM. (3) Palpitations: Status: Acute Assessment and plan: Telemetry. Home with 30 day monitor as well. History of Present Illness History of Present Illness Chief Complaint: Chest pain and palpitations Narrative: This is a 76 yo male with no PMH that he reports and taking no medications. He endorses intermittent palpitations for appx 6 weeks. He notes the symptoms with walking and at times with leaning forward. The episodes last for 2 beats to appx 30 seconds. This has led to him walking less distance than his usual routine of 4 miles. No shortness of breath. Over the last 2 days prior to admission he has noted left sided chest discomfort that is intermittent. Pressure-like in nature. No diaphoresis, N/V. He denies GERD symptoms. No lightheadedness/dizziness. EKG w/o concerning findings. Troponin negative x2. Lab work unremarkable. CXR normal. 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 Meds Allergies and Home Medications Allergies Allergy/AdvReac Type Severity Reaction Status Date / Time No Known Allergies Allergy Verified 11/03/21 11:49 Home Medications Medication Instructions Recorded Confirmed Type hydrochlorothiazide 12.5 mg tablet 25 mg PO DAILY 12/05/18 09/12/19 History lisinopril 10 1 tab PO DAILY 11/03/21 11/03/21 History mg-hydrochlorothiazide 12.5 mg tablet Exam Narrative Exam Narrative: Lying in bed watching TV. Const General: no acute distress Nutritional Appearance: average body habitus Orientation: alert and oriented x3 Eyes General: appearance normal, both eyes and all related structures Sclera: sclerae normal Neck Neck: full ROM and no JVD Resp Effort & Inspection: normal respiratory effort Auscultation: clear to auscultation bilaterally Cardio Rate: regular rate Rhythm: regular rhythm Heart Sounds: S1 normal and S2 normal GI Palpation: soft and nontender Skin General skin exam: no rashes or lesions noted Extrem General: no pedal edema and no calf tenderness Psych Appearance: grossly normal Mental Status: mental status grossly normal Speech and Movement: speech and movement normal Mood: congruent mood Affect: normal affect Results Labs Result diagrams: 11/03/21 12:05 11/03/21 12:05 Labs: Laboratory Results - last 24 hr 11/03/21 11/03/21 11/03/21 12:05 12:05 12:05 WBC 7.48 RBC 4.56 Hgb 13.8 Hct 41.4 MCV 91 MCH 30.3 MCHC 33.3 RDW 12.0 Plt Count 245 MPV 9.4 Immature Gran % 0.4 Neutrophils % 69.7 Lymphocytes % 15.8 Monocytes % 7.5 Eosinophils % 5.7 Basophils % 0.9 Nucleated RBC % 0.0 Absolute Neutrophils 5.21 Absolute Lymphocytes 1.18 L Absolute Monocytes 0.56 Absolute Eosinophils 0.43 Absolute Basophils 0.07 Sodium 141 Potassium 3.8 Chloride 104 Carbon Dioxide 30.0 Anion Gap 7.0 BUN 24 H Creatinine 1.1 Estimated GFR/1.73 m2 >= 60.00 Glucose 142 H Calcium 9.0 Magnesium 1.9 Total Bilirubin 0.4 AST 24 ALT 29 Alkaline Phosphatase 57 Troponin I < 50 Total Protein 7.4 Albumin 3.9 TSH 2.42 COVID-19 Source SARS-CoV-2 (PCR) Influenza Type A (PCR) Influenza Type B (PCR) RSV (PCR) 11/03/21 11/03/21 14:21 15:28 WBC RBC Hgb Hct MCV MCH MCHC RDW Plt Count MPV Immature Gran % Neutrophils % Lymphocytes % Monocytes % Eosinophils % Basophils % Nucleated RBC % Absolute Neutrophils Absolute Lymphocytes Absolute Monocytes Absolute Eosinophils Absolute Basophils Sodium Potassium Chloride Carbon Dioxide Anion Gap BUN Creatinine Estimated GFR/1.73 m2 Glucose Calcium Magnesium Total Bilirubin AST ALT Alkaline Phosphatase Troponin I < 50 Total Protein Albumin TSH COVID-19 Source Not Applicable SARS-CoV-2 (PCR) Negative Influenza Type A (PCR) Negative Influenza Type B (PCR) Negative RSV (PCR) Negative Last Vital Signs Temp 36.5 C 11/03/21 16:03 Pulse 55 L 11/03/21 16:03 Resp 14 11/03/21 16:03 BP 143/95 H 11/03/21 16:03 Pulse Ox 98 11/03/21 16:03
[2021-11-04 01:45] VITALS: PULSE 43
[2021-11-04 02:55] VITALS: BP 126/69; PULSE 55; RESP 17; TEMP 35.9; O2SAT 97
[2021-11-04 07:00] VITALS: PULSE 51
[2021-11-04 07:25] VITALS: BP 127/78; PULSE 62; RESP 19; TEMP 35.9; O2SAT 100
--- NOTE | 2021-11-04 08:00 | DI.NM_ITS ---
APPROVED REPORT Exam: Exercise Treadmill Patient Location: Out-Patient Room/Bed: Stress Nurse: Consuelo Butler RN Ordering Provider:CARLOS HUITRON, Contact Number: [phone] BMI: 27.24 Baseline Rhythm: Sinus Bradycardia Indications: Chest pain Medical History Medical History: Palpitations, hypertension, diverticulitis, bilateral hearing loss Cardiac Medications: Hydrochlorothiazide, lisinopril Allergies: NKDA Cardiac Risk Factors: Hypertension Previous Cardiac Procedures: None Pretest Chest Pain Characteristics: None Exercise History: Physically active Physical Disabilities: None Lung Sounds: Clear to auscultation Heart Sounds: Regular Stress Test Details Test: Exercise stress testing was performed using a John protocol. Nuclear Acquisition: Rest Tc-99m/Stress Tc-99m 1 day Rest Isotope: Tc-99m Sestamibi. Dose: 9.0 Date: 11/04/2021 Injection Time: 0730 Stress Isotope: Tc-99m Sestamibi. Dose: 33.0 Date: 11/04/2021 Injection Time: 0922 HR Resting HR Supine: 50 bpm Max Heart Rate (APMHR): 145.146117 bpm Resting HR Standin bpm Target HR (85% APMHR): 123.089665 bpm Max HR Achieved: 143 bpm % of APMHR: 98.62 Recovery HR: 59 bpm HR response to stress: Normal HR response to stress BP Resting BP Supine: 122/68 mmHg Resting BP Standin/74 mmHg Max BP: 172/80 mmHg Recovery BP: 122/62 mmHg BP response to stress: Normal blood pressure response to stress. ECG Resting ECG: Sinus Bradycardia Ectopy: None Stress ECG: Sinus Tachycardia ST Change: No significant ST segment changes noted Arrhythmia: Rare PACs and PVCs Recovery ECG: Sinus Rhythm, Sinus Bradycardia Recovery ST Change: No significant ST segment changes noted Recovery Arrhythmia: Rare PACs Clinical Reason for Termination: Fatigue Stress Symptoms: General Fatigue Exercise duration: 7 min08 sec Highest Stage Reached: Stage 3: 3.4 mph at 14% grade. Exercise capacity: 8.81 METs Angina Score: None Macdonald Treadmill Score: 6.3 Rate Pressure Product: [id number] Stress ECG Conclusion 1. Resting electrocardiogram was within normal limits 2. Patient exercised on John protocol and completed a workload of 8.81 METS, stopping due to fatigue 3. Normal heart rate and blood pressure response to exercise. Patient achieved 98% of predicted hear t rate for age 4. There was no electrocardiographic evidence of myocardial ischemia 5. There were no significant dysrhythmias 6. See MPI report Macdonald Treadmill Score is 6.3 which is Low risk. Stress Test Summary STAGE Time (mins) Speed (mph) Grade (%) HR BP SpO2 SYMPTOMS METS Supine 50 122/68 Standing 53 122/74 SpO2 98% 1 3 1.7 10 99 132/78 SpO2 98% 4.5 2 6 2.5 12 126 142/74 SpO2 98% 7 3 9 3.4 14 143 SpO2 98% 10 1 min recovery 117 172/80 SpO2 98% 3 min recovery 66 138/78 SpO2 98% 6 min recovery 59 122/62 SpO2 98% MPI Conclusion Normal myocardial perfusion without evidence of ischemia or prior infarction EF 54%, normal wall motion Radiologist Interpretation Radiologist Interpretation by: Mateo Jim MD Interpretation Date/Time: 11/04/2021 17:28:55
[2021-11-04] MEDS: hydroCHLOROthiazide 12.5 MG TAB PO (10:30)
[2021-11-04] MEDS: Aspirin 81 MG CHEW PO (10:30)
[2021-11-04] MEDS: Lisinopril 10 MG TAB PO (10:30)
[2021-11-04 11:04] LABS: Lyme Ab w Rflx to Lyme Confirm Negative (Negative)
--- NOTE | 2021-11-04 11:15 | INITIAL_ITS ---
- If Service Date Differs Date of service: 11/04/21 Time of Service: 11:15 Care Management Initial Assess REASON FOR HOSPITALIZATION:: hypertension, chest pain PAST MEDICAL HISTORY/PAST SURGICAL HISTORY:: All Active Problems (Updated 11/03/21 @ 18:37 by Ry Valderrama MD). Palpitations (Acute). Chest pain (Acute). Unstable angina (Acute). Seborrheic keratoses, inflamed (Acute). 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 Bilateral hearing loss (Acute). Hypertension (Chronic). Diverticulosis (Acute). Onychomycosis (Acute). Surgical History . History of colonoscopy PREVIOUS FUNCTIONAL STATUS/SOCIAL/FAMILY SUPPORTS:: Ry lives alone in a single family home in [facility]. He has a son who is a physician in [place] and another son who lives in [place]. 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 He now spends his time gardening, walking and hiking. CURRENT FUNCTIONAL STATUS:: Merlin was sitting up in a chair when CM met with him. He was fully dressed and verbalized that he hoped to be discharged home today. He was pleasant in interaction and agreeable to conversation. Merlin s tated that he feels well. He completed his stress test and stated that he thought it went well. he denied the need for any services at home. ADVANCE DIRECTIVES:: on file. Stanley Lauren primary [facility]. Stanley Haney - secondary Has patient been provided with info about the portal/API?: Yes Did the patient sign up for the portal?: No CODE STATUS:: Full Code INSURANCE COVERAGE / FINANCIAL ISSUES:: Medicare. BC BS CURRENT HOME/COMMUNITY SERVICES/EQUIPMENT:: none PRIMARY CARE PHYSICIAN:: Raymond Olivares POTENTIAL DISCHARGE NEEDS:: follow up with Cardiology and PCP PATIENT/FAMILY EDUCATION NEEDS:: Review of dfischarge instructions, limitations, activity, follow up plan, discuss Ask Me Three. TRANSPORTATION:: via private vehicle PLAN:: Ry will be discharged home with no new services when medically cleared by provider. He will folllow up with his PCP and plan of care and transport with family.
--- NOTE | 2021-11-04 14:30 | W.PM.DS.N ---
Date of service: 11/04/21 Time of Service: 14:30 DS: Diagnosis Discharge Diagnosis (1) Hypertension: Status: Chronic (2) Chest pain: Status: Acute (3) Palpitations: Status: Acute Discharge Plan Disposition Patient Disposition: HOME Condition: Stable Discharge Details Reason For Visit: Chest Pain,Rule Out SC Admit Date/Time: 11/03/21 14:29 Admit Provider: Ry Valderrama Attending Provider: Ry Valderrama Primary Care Provider: Raymond Olivares Hospital Course Hospital Course: This is a 76 yo male with no PMH that he reports and taking no medications.? He endorses intermittent palpitations for appx 6 weeks.? He notes the symptoms with walking and at times with leaning forward.? The episodes last for 2 beats to appx 30 seconds.? This has led to him walking less distance than his usual routine of 4 miles.? No shortness of breath.? Over the last 2 days prior to admission he has noted left sided chest discomfort that is intermittent.? Pressure-like in nature.? No diaphoresis, N/V.? He denies GERD symptoms.? No lightheadedness/dizziness. EKG w/o concerning findings.? Troponin negative x2.? Lab work unremarkable. CXR normal. He had no further CP or palpitatons. No arrhythmias on monitoring. NM stress testing pending. He desires to go home and agree to this; will call him with the results. Follow up with PCP in 1-2 weeks. Home Meds and New Rx's Prescriptions: New aspirin [Children's Aspirin] 81 mg Tablet,Chewable 81 mg PO DAILY Qty: 0 0RF Continued hydrochlorothiazide 12.5 mg tablet 25 mg PO DAILY lisinopril-hydrochlorothiazide 10-12.5 mg Tablet 1 tab PO DAILY Discharge Instructions Instructions: Angina (DC) Stand Alone Forms: Nursing Discharge Form Activity:: Activity as Tolerated Equipment/Supplies:: No Equipment Needed Diet:: Heart Healthy Diet Discharge Orders Discharge Orders: Discharge Order (Routine); Ordered 11/04/21 Ordered By: Ry Valderrama DS: Summary Time Spent with Patient providing and/or coordinating discharge services: Greater than 30 minutes Status at Discharge Functional status at discharge: independent ambulation Overall status at discharge: patient is back to baseline Mental Status: mental status grossly normal Speech and Movement: speech and movement normal Mood: congruent mood Affect: normal affect Exam Narrative Exam Narrative: Lying in bed watching TV. Const General: no acute distress Nutritional Appearance: average body habitus Orientation: alert and oriented x3 Eyes General: appearance normal, both eyes and all related structures Sclera: sclerae normal Neck Neck: full ROM and no JVD Resp Effort & Inspection: normal respiratory effort Auscultation: clear to auscultation bilaterally Cardio Rate: regular rate Rhythm: regular rhythm Heart Sounds: S1 normal and S2 normal GI Palpation: soft and nontender Skin General skin exam: no rashes or lesions noted Extrem General: no pedal edema and no calf tenderness Psych Appearance: grossly normal Mental Status: mental status grossly normal Speech and Movement: speech and movement normal Mood: congruent mood Affect: normal affect DS: Data Vitals/I&O Vitals and I&O: Vital Signs Temperature 35.9 C L 11/04/21 07:25 Temperature Source Tympanic 11/04/21 07:25 Pulse 62 11/04/21 07:25 Pulse Rhythm Regular 11/04/21 07:58 Pulse 51 L 11/03/21 15:46 Respiratory Rate 19 11/04/21 07:25 Respiratory Effort 11/04/21 07:58 Respiratory Depth Normal 11/04/21 07:58 Respiratory Pattern Normal 11/04/21 07:58 Blood Pressure 127/78 11/04/21 07:25 Blood Pressure Mean 103 11/03/21 15:46 Blood Pressure Position Sitting 11/03/21 11:46 Pulse Oximetry 100 11/04/21 07:25 Oxygen Delivery Method Room Air 11/04/21 07:25 Oxygen Flow Rate 0 11/04/21 07:25 Pain Level 0 11/04/21 02:55 Intake & Output 11/03/21 11/04/21 11/04/21 23:59 11:59 23:59 Intake Total 120 / 120 Output Total 275 / 275 Balance -155 / -155 Weight 79.379 kg Intake: Oral 120 / 120 Output: Urine 275 / 275 Other: Urine Color Yellow Urine Appearance Clear Clear Urine Odor None Comment patient voiding independently Voiding Methods Toilet Toilet Data Completed and Pending Labs on day of discharge: Labs from last 24 hours 11/03/21 11/03/21 11/03/21 15:28 14:21 13:20 Troponin I < 50 Lyme Disease Antibody Negative COVID-19 Source Not Applicable SARS-CoV-2 (PCR) Negative Influenza Type A (PCR) Negative Influenza Type B (PCR) Negative RSV (PCR) Negative PFSH All Active Problems Palpitations (Acute) Chest pain (Acute) Unstable angina (Acute) Seborrheic keratoses, inflamed (Acute) 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
[2021-11-05 00:51] LABS: Anaplasma phagocytophilum Negative (Negative); B. miyamotoi PCR Negative (Negative); Babesia divergens/MO-1 Negative (Negative); Babesia duncani Negative (Negative); Babesia microti Negative (Negative); Ehrlichia chaffeensis Negative (Negative); Ehrlichia ewingii/canis Negative (Negative); Ehrlichia muris eauclairensis Negative (Negative)
== END 2021-11-04 15:28 | disposition home or self-care (01) ==
LOC: ER 14:57 → MS 15:55
PROVIDERS: Admitting Provider Family Medicine; Emergency Provider Physician Assistant; PCP Physician Assistant; Visit Provider Family Medicine
DX: R07.89 Other chest pain (principal); I10 Essential (primary) hypertension; R00.2 Palpitations; C44.202 Unspecified malignant neoplasm of skin of right ear and external auricular canal; H91.93 Unspecified hearing loss, bilateral; Z20.822 Contact with and (suspected) exposure to COVID-19
CPT/HCPCS: 36415; 78452; 80053; 87637; 87798; 93005; 93016; 93018; 99284; 99285; 71046; 83735; 84443; 84484; 85025; 86618; 93010; 93017; 99217; 99220; G0378

== ENCOUNTER 2022-05-25 14:57 | Outpatient (REF) | payer MEDICARE, BC, SELFPAY ==
[2022-05-25 15:43] LABS: ALT 29 U/L (16-63); AST 35 U/L (15-37); Albumin 3.8 g/dL (3.4-5.0); Alkaline Phosphatase 66 U/L (46-116); Anion Gap 7.6 mmol/L (3-11); BUN 23 mg/dL (7-18); Bilirubin, Total 0.6 mg/dL (0.2-1.0); CO2 29.4 mmol/L (21.0-32.0); Calcium 9.3 mg/dL (8.5-10.1); Calculated LDL 57 mg/dL (<100); Chloride 105 mmol/L (98-107); Cholesterol 126 mg/dL (<200); Estimated GFR 78.49 (mL/min/1.73m2); Glucose 93 mg/dL (74-106); HDL Cholesterol 58 mg/dL (40-60); Potassium 4.3 mmol/L (3.5-5.1); Sodium 142 mmol/L (136-145); Total Protein 7.4 g/dL (6.4-8.2); Triglyceride 57 mg/dL (<150)
== END 2022-05-25 14:58 | disposition home or self-care (01) ==
LOC: NCHCN 14:57
PROVIDERS: PCP Physician Assistant; Visit Provider Physician Assistant
DX: I10 Essential (primary) hypertension (principal); I65.23 Occlusion and stenosis of bilateral carotid arteries
CPT/HCPCS: 80053; 80061

== ENCOUNTER → 2022-12-07 07:50 | Outpatient (BNVA) | payer MEDICARE, BC, SELFPAY | PROVIDERS: PCP Physician Assistant; Referring Provider Physician Assistant; Visit Provider Surgery | DX: L98.9 Disorder of the skin and subcutaneous tissue, unspecified (principal) | CPT/HCPCS: 99213 ==

== ENCOUNTER 2022-12-15 08:24 | Outpatient (REF) | payer MEDICARE, BC, SELFPAY ==
--- NOTE | 2022-12-14 08:45 | SKI_PTH ---
PATIENT: Ry Khan LOC: [facility] U#:[id number] AGE/SX: 77/M ROOM: RE12/15/[address]: Radha Block MD : 1945 BED: DIS: 12/15/2022 SPEC #: [id number] RECD: 12/15/22 12:30 STATUS: ANCA REQ #: [id number] KE: 12/14/22 08:[address]: Radha Block DEPT: Surgical Specimen RECD BY: Sofia Ayala ENTERED: 12/15/22 12:30 SP TYPE: BLAIR LEDBETTER DR: Raymond Olivares Tissues: 1 - SKIN BIOPSY(SHAVE/PUNCH) Procedures: SKIN LEVEL 4 Comments: [id number]
== END 2022-12-15 08:25 | disposition home or self-care (01) ==
LOC: LBN 08:24
PROVIDERS: PCP Physician Assistant; Visit Provider Surgery
DX: L98.9 Disorder of the skin and subcutaneous tissue, unspecified (principal); C44.92 Squamous cell carcinoma of skin, unspecified
CPT/HCPCS: 88305

== ENCOUNTER → 2022-12-15 08:24 | Outpatient (BNVA) | payer MEDICARE, BC, SELFPAY | PROVIDERS: PCP Physician Assistant; Referring Provider Physician Assistant; Visit Provider Surgery | DX: C44.42 Squamous cell carcinoma of skin of scalp and neck (principal) | CPT/HCPCS: 11622 ==

== ENCOUNTER 2023-06-01 11:44 | Outpatient (REF) | payer MEDICARE, BC, SELFPAY ==
[2023-06-01 16:23] LABS: Anion Gap 10.2 mmol/L (3-11); BUN 24 mg/dL (7-18); CO2 26.8 mmol/L (21.0-32.0); Calcium 9.3 mg/dL (8.5-10.1); Calculated LDL 66 mg/dL (<100); Chloride 104 mmol/L (98-107); Cholesterol 136 mg/dL (<200); Glucose 86 mg/dL (74-106); HDL Cholesterol 53 mg/dL (40-60); Potassium 4.2 mmol/L (3.5-5.1); Sodium 141 mmol/L (136-145); Triglyceride 89 mg/dL (<150)
== END 2023-06-01 11:45 | disposition home or self-care (01) ==
LOC: NCHCN 11:44
PROVIDERS: PCP Physician Assistant; Visit Provider Physician Assistant
DX: I10 Essential (primary) hypertension (principal)
CPT/HCPCS: 80048; 80061

== ENCOUNTER 2024-06-21 10:51 | Outpatient (REF) | payer MEDICARE, BC, SELFPAY ==
[2024-06-21 16:32] LABS: ALT 37 U/L (16-63); AST 30 U/L (15-37); Albumin 4.1 g/dL (3.4-5.0); Alkaline Phosphatase 76 U/L (46-116); Anion Gap 8.8 mmol/L (3-11); BUN 24 mg/dL (7-18); Bilirubin, Total 0.52 mg/dL (0.2-1.0); CO2 26.2 mmol/L (21.0-32.0); Calcium 9.5 mg/dL (8.5-10.1); Calculated LDL 62 mg/dL (<100); Chloride 106 mmol/L (98-107); Cholesterol 139 mg/dL (<200); Estimated GFR 77.04 (mL/min/1.73m2); Glucose 83 mg/dL (74-106); HDL Cholesterol 57 mg/dL (40-60); Potassium 4.6 mmol/L (3.5-5.1); Sodium 141 mmol/L (136-145); Total Protein 7.5 g/dL (6.4-8.2); Triglyceride 100 mg/dL (<150)
== END 2024-06-21 10:52 | disposition home or self-care (01) ==
LOC: NCHCN 10:51
PROVIDERS: PCP Physician Assistant; Visit Provider Physician Assistant
DX: I10 Essential (primary) hypertension (principal)
CPT/HCPCS: 80053; 80061